=== PATIENT | female | born 1980 | race Caucasian/White ===

== ENCOUNTER → 2017-07-13 | Day surgery (SDC) | payer OTHER ==
--- NOTE | 2017-07-13 19:37 | OP ---
DATE OF OPERATION: 07/13/2017 PREOPERATIVE DIAGNOSES: Right upper outer quadrant breast mass and multiple right axillary suspicious lymph nodes. POSTOPERATIVE DIAGNOSES: Right upper outer quadrant breast mass and multiple right axillary suspicious lymph nodes. PROCEDURE: Right ultrasound-guided core biopsy of the breast and right ultrasound-guided core biopsy of low axillary node. ANESTHESIA: Local. ATTENDING SURGEON: Jr Pleitez MD DESCRIPTION OF PROCEDURE: Patient was made aware of the risks and benefits of the procedure and consented. She was placed in supine position. The right breast was then approach first. Under sterile conditions with 1% lidocaine for local anesthesia, a small shelli was made in the skin. Using a 13-gauge suction biopsy device via lateral approach under ultrasound guidance, multiple cores were obtained and submitted to Pathology. Likewise, under ultrasound guidance, a U-shaped clip was placed into the biopsy region. Well tolerated by patient. Steri-Strip and a sterile bandage were applied. The right axilla was then approached. Again, under sterile conditions with 1% lidocaine for local anesthesia, a small shelli was made in the skin. Using an additional 13-gauge suction biopsy device via lateral approach under ultrasound guidance, multiple cores were obtained and submitted to Pathology. Likewise, under ultrasound guidance, a HydroMARK clip was placed into the axillary region. Well tolerated by the patient. Steri-Strips and a sterile bandage were applied. We will contact her with the results. Incidentally, a left axillary ultrasound performed before procedure was unremarkable. JR PLEITEZ M.D. [id number]
--- NOTE | 2017-07-16 16:44 | PATH ---
Surgical Pathology Report Patient Name: KATELYNN SALAZAR [facility]. Rec. #: [id number] /Age/Gender: 1980 (Age: 36) / F Account: [id number] Location: [facility]-RADIOLOGY Taken: 07/13/2017 Received: 07/13/2017 Reported: 07/14/2017 Physicians: Jr Pleitez M.D. Specimen(s) Received A: RIGHT BREAST CORE BX 10N5 B: RIGHT AXILLARY LYMPH NODE BIOPSY Clinical History Palpable mass Ultrasound findings: Highly suspicious/malignant Final Diagnosis A. RIGHT BREAST, 10:00 5 CM FROM NIPPLE, ULTRASOUND GUIDED NEEDLE CORE BIOPSY: POORLY DIFFERENTIATED INVASIVE DUCTAL CARCINOMA, AT LEAST 1.1 CM IN LENGTH MEASURED ON A SLIDE, WITH ASSOCIATED CALCIFICATION. 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 Results of Estrogen Receptor (ER) and Progesterone Receptor (WA) studies performed at [facility] are as follows: ER (clone [id number] mouse monoclonal antibody by [employer]): ~70% nuclear staining with moderate to weak intensity (Positive). WA (clone16 mouse monoclonal antibody by [employer]): ~80% nuclear staining with strong to moderate intensity (Positive). Positive and negative controls (internal if applicable) show appropriate results. Formalin fixation and cold ischemic times are within current ASCO/CAP recommendations for ER, WA and Her2 testing. B. LYMPH NODE, RIGHT AXILLA, NEEDLE CORE BIOPSY: METASTATIC POORLY DIFFERENTIATED CARCINOMA, AT LEAST 1.1 CM IN LENGTH MEASURED ON A SLIDE. Comment: This case was discussed with Dr. Pleitez on July 14, 2017. Assays for HER-2/cyn and Ki67 are pending, and a report will follow. Electronically Signed Kiel Gupta M.D. Addendum Reported: 07/16/2017 Addendum Diagnosis Results of Her2 (IHC) & Ki-67 studies performed on block "A1" at [place], [place] ([id number]) are as follows: Her2 IHC (EP3 from [employer], formerly known as [id number], using [employer] Polymer Refine detection kit): 3+ (Positive). Ki-67: 45% (High Proliferative index). Positive and negative controls (internal if applicable) show appropriate results. Cynthia Larsen M.D. Gross Description A. Received in formalin labeled "right breast biopsy 10:00, 5 cmfn," is a 2.0 x 1.3 x 0.2 cm aggregate of multiple kate-yellow, irregular to cylindrical portions of fibroadipose tissue admixed with blood clot. The formalin is filtered and the specimen is entirely submitted in one cassette. B. Received in formalin labeled "right axilla biopsy lymph node," is a 1.4 x 1.3 x 0.2 cm aggregate of multiple kate-yellow, irregular to cylindrical portions of fibroadipose tissue admixed with blood clot. The formalin is filtered and the specimen is entirely submitted in one cassette. Time to formalin fixation: Less than one minute Total formalin fixation time: Approximately 6 hours. 07/13/2017 [facility]07/13/2017
== END | disposition home or self-care (01) ==
LOC: FRAD 11:10
PROVIDERS: ATTEND Surgery Surgical Oncology
PROC: 0HBT3ZX Excision of Right Breast, Percutaneous Approach, Diagnostic (ICD-10-PCS; principal; 2017-07-13)
PROC: 07B53ZX Excision of Right Axillary Lymphatic, Percutaneous Approach, Diagnostic (ICD-10-PCS; 2017-07-13)
PROC: BH47ZZZ Ultrasonography of Upper Extremity (ICD-10-PCS; 2017-07-13)
DX: C50.411 Malignant neoplasm of upper-outer quadrant of right female breast (principal); C77.3 Secondary and unspecified malignant neoplasm of axilla and upper limb lymph nodes; Z17.0 Estrogen receptor positive status [ER+]; N63.11 Unspecified lump in the right breast, upper outer quadrant; R59.0 Localized enlarged lymph nodes
CPT/HCPCS: 19083; 76641-TC-LT; 76942-TC; 87899; 88305-TC; 88342-TC; A4648